=== PATIENT | male | born 1960 | race Caucasian/White ===

== ENCOUNTER 2019-07-26 15:06 | Emergency (ER) | payer OTHER, MEDICAID ==
[~2019-07-26] VITALS: Ht 180.3 cm; Wt 81.6 kg
[~2019-07-26 15:06] MED LIST: ALPR0.5T PO; AMLO5TAB4 PO; ASPI-1153 PO; CARV12.548 PO; CEL20 PO; FOLI-43 PO; FOLI0.8T2 PO; FURO-149 PO; HYDR-4039 PO; LISI-600 PO; METO-290 PO; PRO40 PO
[2019-07-26 15:10] VITALS: BP_SYST 109
--- NOTE | 2019-07-26 15:10 | NUR ---
Placed in room 01 . Placed on make ready mechanic, blood pressure machine and pulse oximeter. To gown for exam. Side rails up. Report given to LEONORA SUAREZ
--- NOTE | 2019-07-26 15:12 | NUR ---
PATIENT BROUGHT IN ALS FROM [facility]. PER EMS, PATIENT WAS 3 HOUR INTO DIALYSIS WHEN PATIENT BECAME UNRESPONSIVE. HAD ONE EPISODE OF NON-BLOODY EMESIS AND LEFT SIDED GAZE NOTED. BLOOD SUGAR IN ROUTE IS 230. SNF TO SEND H&P. PATIENT CONTINUES TO BE NON VERBAL. PAIN 0/10. NO OTHER COMPLAINTS/INJURIES PER PATIENT OR NOTED. WILL CONTINUE TO MONITOR.
--- NOTE | 2019-07-26 15:15 | NUR ---
ER at bedside examining patient.
--- NOTE | 2019-07-26 15:17 | NUR ---
Patient transported to radiology via GURNEY, accompanied by HATCHERY LABORER
--- NOTE | 2019-07-26 15:55 | NUR ---
Pt vomiting. ER MD to bedside. Orders recieved. Vomit cleaned with wet cloth, shirt cut off. Placed on monitor. 20g IV placed RAC.
[2019-07-26] MEDS ORDERED: ONDANSETRON HCL 4 MG/2 ML VIAL IVP ONE ×2 (16:00→17:00)
--- NOTE | 2019-07-26 16:02 | NUR ---
Medicated for vomiting per MD orders.
[2019-07-26 16:08] LABS: BASOPHILS # (AUTO) 0.1 K/uL (0.0-0.2); BASOPHILS % (AUTO) 0.3 % (0.0-2.0); EOSINOPHILS # (AUTO) 0.4 K/uL (0.0-0.4); EOSINOPHILS % (AUTO) 2.3 % (0.0-4.0); HEMOGLOBIN 12.6 g/dL (14.0-18.0); LYMPHOCYTES # (AUTO) 1.2 K/uL (1.0-5.5); MEAN CORPUSCULAR HEMOGLOBIN 30 pg (27-31); MEAN CORPUSCULAR HGB CONC 32 % (32-36); MEAN CORPUSCULAR VOLUME 92 fL (79.0-98.0); MONOCYTES # (AUTO) 0.8 K/uL (0.0-1.0); NEUTROPHILS # (AUTO) 14.3 K/uL (1.8-7.7); NEUTROPHILS % (AUTO) 85.4 % (40.0-70.0); PLATELET COUNT (AUTO) 297 K/uL (130-430); RED BLOOD CELL COUNT(AUTO) 4.26 MIL/uL (4.2-6.2); RED CELL DISTRIBUTION WIDTH 14.4 % (9.0-15.0); WHITE BLOOD COUNT (AUTO) 16.8 K/uL (4.8-10.8)
[2019-07-26 16:15] LABS: INR 1.1 (0.80-1.20)
[2019-07-26 16:16] LABS: CALCIUM 9.7 mg/dL (8.4-11.0); CREATININE 2.94 mg/dL (0.55-1.30)
[2019-07-26 16:21] LABS: ALBUMIN 2.6 g/dL (3.4-4.8); TOTAL BILIRUBIN 0.6 mg/dL (0.0-1.0)
--- NOTE | 2019-07-26 16:21 | NUR ---
cALLED [facility] SPOKE TO ABDIAS. PATIENT FROM [facility] [phone] SPOKE TO JOELLEN COLIN. PATIENT'S BASELINE AO X 3 AND IS RESPONSIBLE TO SELF. PATIENT HAS HISTORY OF RIGHT SIDED CVA. NOTIFIED
--- NOTE | 2019-07-26 16:48 | NUR ---
pt is vomiting heavily. Suction set up at the bedside. Medicated with Zofran and Reglan IVP. Will reassess.
[2019-07-26] MEDS ORDERED: KCL 40mEq in D5/0.45NS 1000 mL 1,000 ML IV ONE (17:00)
[2019-07-26] MEDS ORDERED: METOCLOPRAMIDE HCL 10 MG/2 ML VIAL IVP ONE (17:00)
--- NOTE | 2019-07-26 17:15 | NUR ---
Pt is resting in bed and is longer vomiting.
--- NOTE | 2019-07-26 17:20 | NUR ---
Swallow eval not preformed. Pt has been vomiting consistently. Only IV meds given
--- NOTE | 2019-07-26 17:41 | NUR ---
Reprot given to [facility] paramedics. Pt will be transported to [facility] at this time.
--- NOTE | 2019-07-26 17:43 | NUR ---
Spoke with the pt's son-in-law after the pt was transferred. Pt has hx of stroke x4. Pt's family was currently in the process of considering to place a G-tube on the pt d/t severe dysphagia.
[2019-07-26 18:01] VITALS: BP_SYST 108
--- NOTE | 2019-07-27 09:31 | NUR ---
Radiology discepancy: increased thickness of the faulx. Patient has been discharged from [facility]. Report was faxed to PCP Dr. Salcido for follow up.
== END 2019-07-26 17:43 | disposition short-term general hospital (02) ==
LOC: SED 15:06
DX: I63.9 Cerebral infarction, unspecified (principal); R47.01 Aphasia; J18.9 Pneumonia, unspecified organism; I12.0 Hypertensive chronic kidney disease with stage 5 chronic kidney disease or end stage renal disease; E11.22 Type 2 diabetes mellitus with diabetic chronic kidney disease; N18.6 End stage renal disease; Z99.2 Dependence on renal dialysis; Z79.899 Other long term (current) drug therapy; Z79.82 Long term (current) use of aspirin
CPT/HCPCS: 36415; 70450; 71250; 80053; 82803; 82962; 83605; 84484; 85025; 85610; 85730; 87040; 93005; 96374; 96375; 96376; 99291; J2405; J2765; 36600